=== PATIENT | female | born 1985 | race Two or more races ===

== ENCOUNTER 2023-05-02 14:08 | Emergency (ER) | payer OTHER ==
[~2023-05-02] VITALS: Ht 162.6 cm; Wt 62.0 kg
[2023-05-02] VITALS (8 sets, daily range): BP systolic 93–109; BP diastolic 57–62; PULSE 64–81; RESP 18; TEMP 97.9–98.9
[2023-05-02 14:44] LABS: BASOPHILS % (AUTO) 0.7 % (0.0-2.0); EOSINOPHILS % (AUTO) 1.3 % (1.0-6.0); HEMATOCRIT 22.5 % (36-46); LYMPHOCYTES # (AUTO) 1.5 K/uL (1.0-4.8); LYMPHOCYTES % (AUTO) 40.8 % (22.0-44.0); MEAN CORPUSCULAR HEMOGLOBIN 17.1 pg (26.0-34.0); MEAN CORPUSCULAR HGB CONC 29.4 G/dL (31.0-37.0); MEAN CORPUSCULAR VOLUME 58 fL (80-100); MONOCYTES # (AUTO) 0.3 K/uL (0.1-1.0); MONOCYTES % (AUTO) 8.1 % (2.0-9.0); NEUTROPHILS # (AUTO) 1.8 K/uL (1.8-7.7); NEUTROPHILS % (AUTO) 49.1 % (40.0-70.0); PLATELET COUNT (AUTO) 291 K/uL (150-450); RED BLOOD CELL COUNT(AUTO) 3.85 MIL/uL (4.00-5.20); RED CELL DISTRIBUTION WIDTH 19.8 % (11.5-14.5); WHITE BLOOD COUNT (AUTO) 3.6 K/uL (4.5-11.0)
[2023-05-02 14:45] LABS: HEMOGLOBIN 6.6 g/dL (12.0-16.0)
[2023-05-02 14:51] LABS: ANION GAP 10 mmol/L (8-16); CALCIUM, TOTAL 9.1 mg/dL (8.8-10.5); CARBON DIOXIDE 26 mmol/L (22-29); CHLORIDE 102 mmol/L (98-107); CREATININE 0.64 mg/dL (0.60-1.30); GLOMERULAR FILTR. RATE CALC > 60 mL/min (>60); GLUCOSE,RANDOM 104 mg/dL (70-110); POTASSIUM 3.6 mmol/L (3.5-5.1); SODIUM SERUM 138 mmol/L (136-145); UREA NITROGEN, BLOOD 11 mg/dL (7-18)
[2023-05-02 14:55] LABS: PROTHROMBIN TIME 10.6 SEC (9.4-11.6)
[2023-05-02 14:56] LABS: ALANINE AMINOTRANSFERASE 31 U/L (12-78); ALBUMIN 3.9 g/dL (3.4-5.0); ALKALINE PHOSPHATASE 100 U/L (46-116); ASPARTATE AMINOTRANSFERASE 31 U/L (15-37); BILIRUBIN,TOTAL 0.9 mg/dL (0.1-1.0); TOTAL PROTEIN, SERUM 8.4 g/dL (6.4-8.2)
[2023-05-02 15:00] LABS: COVID AG,FIA SOURCE NASAL SWAB
[2023-05-02 15:21] LABS: SARS-COV2 (COVID) ANTIGEN,FIA Negative (Negative)
[2023-05-02 15:36] LABS: RBC MORPHOLOGY COMMENT ABNORMAL RBC MORPH
[2023-05-02 15:37] LABS: PATHOLOGY REVIEW, DIFF YES
== END 2023-05-02 20:45 | disposition home or self-care (01) ==
LOC: EMS 14:08
DX: D64.9 Anemia, unspecified (principal); Z20.822 Contact with and (suspected) exposure to COVID-19
CPT/HCPCS: 99285; 36430; 87426; 80053; 84703; 85025; 85610; 85730; 86850; 86900; 86901; 86923; 36415; P9016